=== PATIENT | male | born 1995 | race Caucasian/White ===

== ENCOUNTER 2025-01-21 20:19 | Emergency (ER) | payer OTHER ==
[2025-01-21] MEDS: KETOROLAC 15 MG/ML 1 ML VIAL IVP STA (20:49)
--- NOTE | 2025-01-21 20:52 | ED ---
Chest Pain HPI - General Chief Complaint: Chest Pain Stated Complaint: Chest pain,Dizziness Time Seen by Provider: 01/21/25 20:29 Source: patient, RN notes reviewed Mode of arrival: ambulatory Limitations: no limitations - History of Present Illness Initial Comments: This is a 29-year-old male who presents to the emergency department for chest pain. States that for the last 2 days he has had intermittent pain in the left side of his chest. Unsure how to characterize this. States that sometimes it is sharp and sometimes it feels like a pressure. This is not worse with exertion or respirations. Denies any shortness of breath associated with this. Denies any family history of premature CAD. Also denies any history of similar symptoms in the past. Additionally, he has been experiencing some dizziness on and off. MD Complaint: chest pain - Related Data Allergies Allergy/AdvReac Type Severity Reaction Status Date / Time No Known Allergies Allergy Verified 01/21/25 20:28 Review of Systems ROS Statement: Those systems with pertinent positive or pertinent negative responses have been documented in the HPI. ROS Other: All systems not noted in ROS Statement are negative. Past Medical History Past Medical History: Hypertension History of Any Multi-Drug Resistant Organisms: None Reported Past Psychological History: Anxiety, Bipolar, Depression, PTSD, Schizophrenia Smoking Status: Vaper Past Alcohol Use History: Rare Past Drug Use History: Marijuana General Exam Limitations: no limitations General appearance: alert, in no apparent distress Head exam: Present: atraumatic, normocephalic, normal inspection Respiratory exam: Present: normal lung sounds bilaterally. Absent: respiratory distress, wheezes, rales, rhonchi, stridor Cardiovascular Exam: Present: regular rate, normal rhythm GI/Abdominal exam: Present: soft, normal bowel sounds. Absent: distended, te nderness, guarding, rebound, rigid Neurological exam: Present: alert, oriented X3, CN II-XII intact Psychiatric exam: Present: normal affect, normal mood Skin exam: Present: warm, dry, intact, normal color. Absent: rash Course Vital Signs 01/21/25 01/21/25 20:24 22:03 Temperature 98.0 F 98.3 F Pulse Rate 79 71 Respiratory 16 18 Rate Blood Pressure 152/92 138/67 O2 Sat by Pulse 97 97 Oximetry Chest Pain MDM - MDM This is a 29 year old male who presents to the emergency department for chest pain. Was pt. sent in by a medical professional or institution? @ -No Did you speak to anyone other than the patient for history? @ -No Did you review nursing and triage notes? @ -Yes, and I agree, it is accurate with regards to the patient's symptoms. Were old charts reviewed? @ -No Differential Diagnosis? @ -Differential Chest Pain: Stable Angina, Unstable Angina, STEMI, NSTEMI Aortic Dissection, Pneumothorax, Musculoskeletal, Esophageal Spasm GERD, Cholecystitis, Pancreatitis, Zoster, this is not meant to be an all-inclusive list. EKG interpreted by me (3pts min.)? @ -EKG interpreted by me demonstrating the following: Sinus rhythm. Ventricular rate 67 bpm, IA interval 143 ms, QRS duration 92 ms, QTc 392 ms. X-rays interpreted by me (1pt min.)? @ -Chest x-ray obtained, my interpretation identifies no localized consolidations or infiltrates. CT interpreted by me (1pt min.)? @ -Not obtained U/S interpreted by me (1pt. min.)? @ -Not obtained What testing was considered but not performed? (CT, X-rays, U/S, labs)? Why? @ -None What meds were considered but not given? Why? @ -None Did you discuss the management of the patient with other professionals? @ -No Did you reconcile home meds? @ -No Was smoking cessation discussed for >3mins.? @ -No Was critical care preformed (if so, how long)? @ -No Were there social determinants of health that impacted care today? How? (Homelessness, low income, unemployed, alcoholism, drug addiction, transportation, low edu. Level, literacy, decrease access to med. care, residential, rehab)? @ -No Was there de-escalation of care discussed even if they declined? (Discuss DNR or withdrawal of care, Hospice)? @ -No What co-morbidities impacted this encounter? (DM, HTN, Smoking, COPD, CAD, Cancer, CVA, Hep., AIDS, mental health diagnosis, sleep apnea, morbid obesity)? @ -None Was patient admitted / discharged? @ -Discharged. Lab work unremarkable. Troponin negative. Chest x-ray reveals no acute process. Pain treated with aspirin and Toradol with improvement in symptoms. Patient has a low cardiac score of 1 related to his risk factor of obesity. Wells criteria is also negative. Advised that he can be discharged home but is advised to have close follow-up with his PCP for reevaluation. Also advised to try ibuprofen and Tylenol as needed for any additional discomfort. Patient discharged home in stable condition. Case discussed with ED attending Dr. Land. Return precautions reviewed in depth, the patient is instructed to return to the emergency department with any new, worsening, or concerning symptoms. Patient verbalized understanding. Undiagnosed new problem with uncertain prognosis? @ -None Drug Therapy requiring intensive monitoring for toxicity (Heparin, Nitro, Insulin, Cardizem)? @ -None Were any procedures done? @ -None Diagnosis/symptom? @ -Chest pain Acute, or Chronic, or Acute on Chronic? @ -Acute Uncomplicated (without systemic symptoms) or Complicated (systemic symptoms)? @ -Uncomplicated Side effects of treatment? @ -None Exacerbation, Progression, or Severe Exacerbation] @ -Not applicable Poses a threat to life or bodily function? @ -No Disposition Clinical Impression: Chest pain Disposition: HOME SELF-CARE Instructions (If sedation given, give patient instructions): Chest Pain (ED), Noncardiac Chest Pain (ED) Additional Instructions: Return to the emergency department with any new, worsening, or concerning symptoms. Alternate with ibuprofen and Tylenol as needed for discomfort. Follow up with your primary care provider in 1-2 days. Is patient prescribed a controlled substance at d/c from ED?: No Referrals: [facility] [NON-STAFF] - 1-2 days [facility] [NON-STAFF] - 1-2 days (Contact a primary care office to become established with a provider. ) None,Stated [Primary Care Provider] - 1-2 days Forms: Area PCPs Time of Disposition: 21:59
[2025-01-21 20:55] LABS: HCT 42.8 % (39.6-50.0); HGB 14.0 g/dL (13.0-17.0); Immature Platelet Fraction 4.1 % (1.1-6.1); MCH 27.9 pg (27.0-32.0); MCHC 32.7 g/dL (32.0-37.0); MCV 85.3 fL (80.0-97.0); Platelet Count 199 10*3/uL (140-440); RBC 5.02 10*6/uL (4.40-5.60); RDW 12.8 % (11.5-14.5); WBC 10.75 10*3/uL (4.50-10.00)
[2025-01-21 21:07] LABS: INR 0.9 (<1.2); Partial Thromboplastin Time 24.4 sec (22.0-30.0); Prothrombin Time 10.5 sec (10.0-12.5)
[2025-01-21 21:09] LABS: Lymphocytes % (A) 25 %; Neutrophils % (A) 64 %
[2025-01-21 21:10] LABS: Basophils % (A) 1 %; Eosinophils % (A) 3 %; Monocytes % (A) 7 %
--- NOTE | 2025-01-21 21:11 | XR ---
EXAMINATION TYPE: XR chest 2V DATE OF EXAM: 01/21/2025 9:04 PM COMPARISON: None CLINICAL INDICATION: Male, 29 years old with history of Chest Pain; [facility] TECHNIQUE: XR chest 2V Frontal and lateral views of the chest. FINDINGS: Lungs/Pleura: There is no evidence of pleural effusion, focal consolidation, or pneumothorax. Pulmonary vascularity: Unremarkable. Heart/mediastinum: Cardiomediastinal silhouette is unremarkable. Musculoskeletal: No acute osseous pathology. Other findings: None IMPRESSION: No acute cardiopulmonary disease/process. [facility], , 01/21/2025 9:08 PM
[2025-01-21 21:16] LABS: ALT 36 U/L (4-49); African American GFR (CKD) >90 (>60 ml/min/1.73 sqM); Albumin 4.8 g/dL (3.5-5.0); Anion Gap 10 mmol/L; Blood Urea Nitrogen 15 mg/dL (9-20); Calcium 9.6 mg/dL (8.4-10.2); Carbon Dioxide 24 mmol/L (22-30); Chloride 107 mmol/L (98-107); Glucose 86 mg/dL (74-99); Lipase 65 U/L (23-300); Magnesium 1.7 mg/dL (1.6-2.3); Non-African American GFR(CKD) >90 (>60 ml/min/1.73 sqM); Sodium 141 mmol/L (137-145); Total Protein 7.4 g/dL (6.3-8.2)
[2025-01-21] MEDS: ASPIRIN 81 MG PO STA (21:18)
[2025-01-21 21:20] LABS: AST 37 U/L (17-59); Alkaline Phosphatase 65 U/L (38-126); Potassium 5.1 mmol/L (3.5-5.1)
[2025-01-21 22:04] VITALS: BP 138/67; PULSE 71; RESP 18; TEMP 98.3
== END 2025-01-21 22:10 | disposition home or self-care (01) ==
LOC: EC 20:19
DX: R07.9 Chest pain, unspecified (principal); F17.290 Nicotine dependence, other tobacco product, uncomplicated
CPT/HCPCS: 36415; 93005; 80053; 83690; 83735; 84484; 85025; 85610; 85730; 71046; 99285; 96374; J1885